=== PATIENT | female | born 1975 | race Caucasian/White ===

== ENCOUNTER 2021-08-31 14:05 | Emergency (ER) | payer BC ==
[2021-08-31] MEDS ORDERED: ACETAMINOPHEN 500 MG TABLET (FP) PO ONE (15:22)
[2021-08-31] MEDS ORDERED: SODIUM CHLORIDE 0.9% 500 ML INFUS.BAG IV ONE (15:23)
[2021-08-31] MEDS ORDERED: MECLIZINE HCL 25 MG TABLET (FP) PO ONE (15:24)
[2021-08-31 15:41] VITALS: BP 145/85; PULSE 71; TEMP 98.3; BMI 29.5
[2021-08-31] MEDS ORDERED: ACETAMINOPHEN 325 MG TABLET (FP) ONE (15:43)
[2021-08-31 17:03] LABS: BASO % 0.5 % (0-2.0); EOS % 3.6 % (0-4.5); HEMATOCRIT 41.5 % (32.4-45.2); HEMOGLOBIN 14.3 GM/dL (10.7-15.3); LYMPH % 37.7 % (8-40); MCHC 34.5 g/dl (32.0-36.0); MEAN CELL VOLUME 75.6 fl (80-96); MEAN PLT VOLUME 9.9 fl (7.5-11.1); NEUT % 50.2 % (42.8-82.8); PLATELET COUNT 310 10^3/uL (134-434); RBC 5.49 M/mm3 (3.60-5.2); RDW 15.2 % (11.6-15.6)
[2021-08-31 17:16] LABS: BLOOD UREA NITROGEN 11.1 mg/dL (7-18); CALCIUM 9.8 mg/dL (8.5-10.1)
[2021-08-31 17:20] LABS: CREATININE 0.7 mg/dL (0.55-1.3)
== END 2021-08-31 18:40 | disposition home or self-care (01) ==
LOC: JER 14:05
DX: R42 Dizziness and giddiness (principal)
CPT/HCPCS: 36415; 70450-TC; 80048; 85025; 93005; 93010; 99285-25

== ENCOUNTER 2022-08-28 08:52 | Emergency (ER) | payer BC ==
[2022-08-28] MEDS ORDERED: ACETAMINOPHEN 500 MG TABLET (FP) PO ONE (09:06)
[2022-08-28 09:09] VITALS: BMI 28.7
[2022-08-28] MEDS ORDERED: IBUPROFEN 600 MG TABLET (FP) PO ONE (11:06)
[2022-08-28 11:11] VITALS: BP 117/71; PULSE 104; RESP 20; TEMP 99.6
== END 2022-08-28 11:27 | disposition home or self-care (01) ==
LOC: JER 08:52
DX: J09.X2 Influenza due to identified novel influenza A virus with other respiratory manifestations (principal); R05.1 Acute cough
CPT/HCPCS: 0241U-QW; 71046-TC-FY; 93005; 93010; 99285-25

== ENCOUNTER 2023-05-12 11:09 | Emergency (ER) | payer BC, OTHER ==
[2023-05-12 11:29] VITALS: BMI 28.1
[2023-05-12] MEDS ORDERED: ACETAMINOPHEN 1000 MG/100 ML BAG IVPB ONE (12:56)
[2023-05-12] MEDS ORDERED: ACETAMINOPHEN INJECTION 100 ML IVPB ONE (13:13)
[2023-05-12] MEDS ORDERED: KETOROLAC TROMETHAMINE 30 MG/1 ML VIAL IVPUSH ONE (14:37)
[2023-05-12] MEDS ORDERED: KETOROLAC TROMETHAMINE 15 MG/ML VIAL ONE (14:40)
[2023-05-12 14:43] LABS: BASO % 0.6 % (0-2.0); EOS % 2.6 % (0-4.5); HEMOGLOBIN 13.8 GM/dL (10.7-15.3); LYMPH % 36.5 % (8-40); MCHC 32.8 g/dl (32.0-36.0); MEAN CELL VOLUME 76.2 fl (80-96); MEAN PLT VOLUME 10.3 fl (7.5-11.1); MONO % 8.6 % (3.8-10.2); NEUT % 51.7 % (42.8-82.8); PLATELET COUNT 280 10^3/uL (134-434); RBC 5.51 M/mm3 (3.60-5.2); RDW 15.3 % (11.6-15.6); WHITE BLOOD COUNT 8.6 K/mm3 (4.0-10.0)
[2023-05-12 14:51] LABS: INR 1.12 (0.83-1.09)
[2023-05-12 14:58] LABS: POTASSIUM 4.3 mmol/L (3.5-5.1)
[2023-05-12 15:00] LABS: ALBUMIN 3.3 g/dl (3.4-5.0); BLOOD UREA NITROGEN 9.8 mg/dL (7-18); CALCIUM 9.1 mg/dL (8.5-10.1)
[2023-05-12 15:03] LABS: CREATININE 0.6 mg/dL (0.55-1.3)
[2023-05-12 15:05] LABS: BILIRUBIN,TOTAL 0.6 mg/dL (0.2-1); TOT PROT 7.8 g/dl (6.4-8.2)
[2023-05-12 15:06] LABS: PH,URINE 6.5 (5.0-8.0); URINE APPEARANCE CLEAR; URINE BILIRUBIN NEGATIVE (NEGATIVE); URINE COLOR YELLOW; URINE GLUCOSE (UA) NEGATIVE (NEGATIVE); URINE KETONE NEGATIVE (NEGATIVE); URINE LEUK ESTERASE NEGATIVE (NEGATIVE); URINE NITRITE NEGATIVE (NEGATIVE); URINE PROTEIN NEGATIVE (NEGATIVE); URINE UROBILINOGEN 0.2 mg/dL (0.2-1.0)
[2023-05-12 15:09] LABS: HCG,QUALITATIVE URINE Negative
[2023-05-12 16:48] VITALS: TEMP 98
[2023-05-12 18:01] VITALS: BP 156/92; PULSE 74; RESP 15
== END 2023-05-12 18:02 | disposition home or self-care (01) ==
LOC: JER 11:09
PROC: 3E033NZ Introduction of Analgesics, Hypnotics, Sedatives into Peripheral Vein, Percutaneous Approach (ICD-10-PCS; principal; 2023-05-12)
PROC: 3E0333Z Introduction of Anti-inflammatory into Peripheral Vein, Percutaneous Approach (ICD-10-PCS; 2023-05-12)
DX: R07.81 Pleurodynia (principal); R06.9 Unspecified abnormalities of breathing; R05.9 Cough, unspecified; U07.1 COVID-19
CPT/HCPCS: 0241U-QW; 36415; 71046-TC-FY; 71275-TC; 74177-TC; 80053; 81003; 84484; 84703; 85025; 85610; 99285-25; Q9967

== ENCOUNTER 2024-01-13 07:00 | Emergency (ER) | payer OTHER, BC ==
[2024-01-13 07:21] VITALS: BP 146/88; PULSE 70; RESP 18; TEMP 97.5; BMI 27.6
[2024-01-13] MEDS ORDERED: KETOROLAC TROMETHAMINE 15 MG/ML VIAL ONE (07:54)
[2024-01-13] MEDS ORDERED: DEXAMETHASONE SOD PHOSPHATE 10 MG/1 ML VIAL ONE (07:55)
[2024-01-13] MEDS: DEXAMETHASONE 4 MG TABLET (FP) PO ONE (08:22)
[2024-01-13] MEDS: KETOROLAC TROMETHAMINE 15 MG/ML VIAL IVPUSH ONE (08:22)
[2024-01-13 08:26] LABS: BASO % 0.8 % (0-2.0); HEMATOCRIT 41.6 % (32.4-45.2); HEMOGLOBIN 14.2 GM/dL (10.7-15.3); LYMPH % 39.2 % (8-40); MCH 25.4 pg (25.7-33.7); MEAN CELL VOLUME 74.7 fl (80-96); MEAN PLT VOLUME 9.2 fl (7.5-11.1); MONO % 6.7 % (3.8-10.2); NEUT % 50.3 % (42.8-82.8); PLATELET COUNT 275 10^3/uL (134-434); RBC 5.57 M/mm3 (3.60-5.2); RDW 15.4 % (11.6-15.6); WHITE BLOOD COUNT 9.6 K/mm3 (4.0-10.0)
[2024-01-13 08:42] LABS: POTASSIUM 3.9 mmol/L (3.5-5.1)
[2024-01-13 08:44] LABS: CALCIUM 9.6 mg/dL (8.5-10.1)
[2024-01-13 08:45] LABS: ALBUMIN 3.7 g/dl (3.4-5.0); BLOOD UREA NITROGEN 14.4 mg/dL (7-18)
[2024-01-13 08:48] LABS: CREATININE 0.7 mg/dL (0.55-1.3)
[2024-01-13 08:49] LABS: BILIRUBIN,TOTAL 0.4 mg/dL (0.2-1)
[2024-01-13 08:50] LABS: TOT PROT 8.8 g/dl (6.4-8.2)
[2024-01-13] MEDS ORDERED: ACETAMINOPHEN 325 MG TABLET (FP) ONE (09:34)
[2024-01-13] MEDS ORDERED: LIDOCAINE VISCOUS 2% ORAL/TOP 15 ML UNIT-DOSE CUP ONE (09:34)
[2024-01-13] MEDS: LIDOCAINE VISCOUS 2% ORAL/TOP 15 ML UNIT-DOSE CUP MM ONE (09:55)
[2024-01-13] MEDS: ACETAMINOPHEN 500 MG TABLET (FP) PO ONE (09:55)
== END 2024-01-13 10:08 | disposition home or self-care (01) ==
LOC: JER 07:00
PROC: 3E0333Z Introduction of Anti-inflammatory into Peripheral Vein, Percutaneous Approach (ICD-10-PCS; principal; 2024-01-13)
DX: J02.9 Acute pharyngitis, unspecified (principal); R05.9 Cough, unspecified; R07.9 Chest pain, unspecified; R06.02 Shortness of breath; Z20.822 Contact with and (suspected) exposure to COVID-19
CPT/HCPCS: 0241U-QW; 36415; 71046-TC-FY; 80053; 83690; 83735; 84484; 85025; 87070; 87651; 93005; 93010; 96374; 99285-25

== ENCOUNTER 2025-01-27 06:28 | Emergency (ER) | payer BC, OTHER ==
[2025-01-27 06:36] VITALS: RESP 20; BMI 25.8
[2025-01-27] MEDS ORDERED: METOCLOPRAMIDE HCL INJECTION 10 MG/2 ML VIAL ONE (07:33)
[2025-01-27] MEDS ORDERED: FAMOTIDINE 20 MG/50 ML IVPB 20 MG/50 ML MG IVPB ONE (07:33)
[2025-01-27] MEDS ORDERED: ACETAMINOPHEN INJECTION 100 ML ONE (07:33)
[2025-01-27 08:06] LABS: ABSOLUTE IMMATURE GRANULOCYTES 0.06 x10^3/uL (0.0-0.031); BASOPHILS # 0.06 x10^3/uL (0.01-0.08); EOSINOPHIL % 0.3 % (0.7-5.8); EOSINOPHILS # 0.05 x10^3/uL (0.04-0.36); HEMATOCRIT 39.1 % (34.1-44.9); HEMOGLOBIN 13.5 g/dL (11.2-15.7); MCHC 34.5 g/dl (32.2-35.5); MEAN CELL VOLUME 70.2 fl (79.4-94.8); MEAN PLT VOLUME 10.6 fl (9.4-12.3); MONOCYTE # 0.93 x10^3/uL (0.24-0.86); MONOCYTE % 6.4 % (4.7-12.5); PLATELET COUNT 250 x10^3/uL (182-369); RDW 14.9 % (12.2-17.1)
[2025-01-27] MEDS: ACETAMINOPHEN 1000 MG/100 ML BAG IVPB ONE (08:09)
[2025-01-27] MEDS: METOCLOPRAMIDE HCL INJECTION 10 MG/2 ML VIAL IVPB ONE (08:15)
[2025-01-27 08:28] LABS: POTASSIUM 4.4 mmol/L (3.5-5.1)
[2025-01-27 08:30] LABS: CALCIUM 9.8 mg/dL (8.5-10.1)
[2025-01-27 08:31] LABS: ALBUMIN 3.7 g/dl (3.4-5.0); BLOOD UREA NITROGEN 9.2 mg/dL (7-18); MAGNESIUM 1.9 mg/dL (1.8-2.4)
[2025-01-27 08:34] LABS: CREATININE 0.7 mg/dL (0.55-1.3)
[2025-01-27 08:35] LABS: BILIRUBIN,TOTAL 0.9 mg/dL (0.2-1)
[2025-01-27] MEDS: LACTATED RINGERS SOLUTION 1000 ML INFUS.BAG IV ONE (08:35)
[2025-01-27] MEDS: FAMOTIDINE 20 MG/50 ML IVPB 20 MG/50 ML MG IVPB ONE (08:55)
[2025-01-27] MEDS ORDERED: KETOROLAC TROMETHAMINE 15 MG/ML VIAL ONE (09:10)
[2025-01-27] MEDS ORDERED: DEXAMETHASONE SOD PHOSPHATE 10 MG/1 ML VIAL ONE (09:10)
[2025-01-27] MEDS: DEXAMETHASONE SOD PHOSPHATE 10 MG/1 ML VIAL IVPUSH ONE (09:19)
[2025-01-27] MEDS: KETOROLAC TROMETHAMINE 15 MG/ML VIAL IVPUSH ONE (09:19)
[2025-01-27] MEDS ORDERED: PENICILLIN G BENZATHINE 1,200,000 UNIT/2 ML PFS IM ONE (09:35)
[2025-01-27] MEDS: PENICILLIN G BENZATHINE 1,200,000 UNIT/2 ML PFS IM ONE (09:49)
[2025-01-27 09:50] VITALS: PULSE 100; TEMP 98.9
[2025-01-27 09:55] VITALS: BP 110/65
== END 2025-01-27 10:10 | disposition home or self-care (01) ==
LOC: JER 06:28
PROC: 3E033GC Introduction of Other Therapeutic Substance into Peripheral Vein, Percutaneous Approach (ICD-10-PCS; principal; 2025-01-27)
PROC: 3E033GC Introduction of Other Therapeutic Substance into Peripheral Vein, Percutaneous Approach (ICD-10-PCS; 2025-01-27)
PROC: 3E033NZ Introduction of Analgesics, Hypnotics, Sedatives into Peripheral Vein, Percutaneous Approach (ICD-10-PCS; 2025-01-27)
PROC: 3E033GC Introduction of Other Therapeutic Substance into Peripheral Vein, Percutaneous Approach (ICD-10-PCS; 2025-01-27)
PROC: 3E0333Z Introduction of Anti-inflammatory into Peripheral Vein, Percutaneous Approach (ICD-10-PCS; 2025-01-27)
PROC: 3E02329 Introduction of Other Anti-infective into Muscle, Percutaneous Approach (ICD-10-PCS; 2025-01-27)
DX: J02.0 Streptococcal pharyngitis (principal); R51.9 Headache, unspecified; R07.2 Precordial pain; R05.9 Cough, unspecified; R09.81 Nasal congestion; R00.0 Tachycardia, unspecified; M79.10 Myalgia, unspecified site
CPT/HCPCS: 0241U-QW; 36415; 71045-TC-FY; 80053; 83735; 84484; 85025; 87651; 93005; 93010; 99285-25; J0131; J1100

== ENCOUNTER 2025-05-25 08:46 | Emergency (ER) | payer BC, OTHER ==
[2025-05-25 09:02] VITALS: BP 124/84; PULSE 91; RESP 18; TEMP 98.3; BMI 24.3
== END 2025-05-25 10:00 | disposition home or self-care (01) ==
LOC: JERFT 08:46 → JER 08:46 → JERFT 10:00
DX: M79.10 Myalgia, unspecified site (principal); R50.9 Fever, unspecified; R53.83 Other fatigue; R09.81 Nasal congestion; R09.82 Postnasal drip; R51.9 Headache, unspecified; R07.0 Pain in throat; R05.9 Cough, unspecified; J06.9 Acute upper respiratory infection, unspecified
CPT/HCPCS: 87637-QW; 99283-25